=== PATIENT | female | born 1995 | race Caucasian/White ===

== ENCOUNTER 2017-08-28 13:17 | Day surgery (SDC) | payer OTHER ==
[~2017-08-28 13:17] MED LIST: INTU3TAB PO; LEXA10TA PO; LISD70 PO; MEDI220T PO; TOVI4TAB PO
[2017-08-28] MEDS ORDERED: IOHEXOL 300 MG/ML 50 ML BTL (for RAD DIAG) IT ONE (13:18)
[2017-08-28] MEDS ORDERED: VESI5TAB2 PO (13:40)
[2017-08-28 13:42] VITALS: BP 139/88; PULSE 95; RESP 20; TEMP 98.2; O2SAT 100
[2017-08-28] MEDS ORDERED: TRIAMCINOLONE ACETONIDE 40 MG/ML VIAL ONE (14:47)
[2017-08-28] MEDS ORDERED: ROPIVACAINE 1% PF INJ 20 ML AMP ONE (14:47)
[2017-08-28 15:25] VITALS: BP 133/73; PULSE 68; RESP 20; O2SAT 100
--- NOTE | 2017-08-28 15:25 | PD.RAD ---
Post Procedure Progress Note Pre Procedure Diagnosis: (1) Herniated nucleus pulposus, L5-S1, left Post Procedure Diagnosis: (1) Herniated nucleus pulposus, L5-S1, left Procedure Date: Aug 28, 2017 Supervising Radiologist: Ki Multani Estimated blood loss: none Plan of Activity Patient to Unit: ROPU Patient Condition: Good Additional Comments: Left L5 nerve root injection completed without difficulty. Full report to follow See PACS Report for procedural detail/treatment Ki Multani MD Aug 28, 2017 15:25
[2017-08-28] MEDS ORDERED: IOHEXOL 350 MG/ML 50 ML BTL (for RAD DIAG) ONE (15:29)
--- NOTE | 2017-08-28 16:40 | RADRPT ---
EXAM DATE/TIME: 08/28/2017 14:55 [facility] COMPARISON: NERVE ROOT INJ, LUMB, INIT LVL,LT, May 09, 2017, 14:14. INDICATIONS : Patient presents with herniated disc and lower back pain in need of nerve root injection for pain man agement. MEDICAL HISTORY : Hernaited disc Lumbar radculopathy Kidney stones Neurogenic bladder SURGICAL HISTORY : Cystoscopy [place] sep and january 2017 ENCOUNTER: Subsequent ACUITY: >1 year PAIN SCORE: 5/10 LOCATION: Left Lower back pain. FLUORO TIME: 2.9 minutes IMAGE SERIES: 0 CONTRAST: 1 cc Omnipaque (iohexol) 300 ACCESS LEVEL: Left L5 MEDICATIONS: 1.) 1 cc triamcinolone (Kenalog) IA 2.) 1 cc ropivicaine (Naropin) IA 3.) 1 cc Lidocaine IA RESPONSE: Pre procedure pain level was 5/10. Post procedure pain level was 3/10. PROCEDURE : 1. Fluoroscopically guided nerve root injection. The risks, benefits and alternatives to the procedure were explained and verbal and written consent w as obtained. The site was prepped in sterile fashion. Full sterile technique was used, including ca p, mask, sterile gloves and gown and a large sterile sheet. Hand hygiene and 2% chlorhexidine and/or betadine/alcohol prep was utilized per protocol for cutaneous antisepsis. The skin and subcutaneous tissues were infiltrated with local anesthetic solution. With fluoroscopic guidance the targeted nerve root was localized and positive contrast was injected t o confirm epidural spread. Following this the prescribed medication was injected surrounding the ner ve root sleeve. The patient's preprocedure pain and post procedure pain levels were recorded. CONCLUSION: Uncomplicated fluoroscopically guided nerve root injection as above. Ki Multani MD on August 28, 2017 at 16:38 Board Certified Radiologist. This report was verified electronically.
== END 2017-08-28 16:10 | disposition home or self-care (01) ==
LOC: HROP 13:17 → HRIP 13:19 → HROP 16:10
PROVIDERS: ATTEND Family Medicine
DX: M51.27 Other intervertebral disc displacement, lumbosacral region (principal); Z87.442 Personal history of urinary calculi
CPT/HCPCS: 64483; 77002; J2795; J3301; Q9967

== ENCOUNTER 2018-01-27 13:28 | Day surgery (SDC) | payer OTHER ==
[~2018-01-27 13:28] MED LIST changes: -TOVI4TAB PO; +VESI5TAB2 PO
[2018-01-27 13:45] VITALS: BP 128/76; PULSE 84; RESP 20; TEMP 98.1; O2SAT 97
[2018-01-27] MEDS ORDERED: TRIAMCINOLONE ACETONIDE 40 MG/ML VIAL ONE (15:15)
[2018-01-27] MEDS ORDERED: ROPIVACAINE 1% PF INJ 20 ML AMP ONE (15:16)
[2018-01-27] MEDS ORDERED: IOHEXOL 300 MG/ML 50 ML BTL (for RAD DIAG) OTHER ONE (15:35)
--- NOTE | 2018-01-27 15:42 | PD.RAD ---
Post Procedure Progress Note Pre Procedure Diagnosis: (1) Herniated nucleus pulposus, L5-S1, left Post Procedure Diagnosis: (1) Herniated nucleus pulposus, L5-S1, left Procedure Date: Jan 27, 2018 Supervising Radiologist: Ki Multani Estimated blood loss: none Anesthesia: Local Plan of Activity Patient to Unit: ROPU Patient Condition: Good Additional Comments: Successful left L5 nerve root injection. Full report to follow See PACS Report for procedural detail/treatment Ki Multani MD Jan 27, 2018 15:42
[2018-01-27 15:45] VITALS: BP 118/75; PULSE 69; RESP 18; TEMP 98; O2SAT 99
== END 2018-01-27 16:00 | disposition home or self-care (01) ==
LOC: HROP 13:28 → HRIP 13:34 → HROP 16:00
PROVIDERS: ATTEND Family Medicine
DX: M51.27 Other intervertebral disc displacement, lumbosacral region (principal)
CPT/HCPCS: 64483; J2795; J3301; Q9967